=== PATIENT | female | born 1955 | race African-American/Black ===

== ENCOUNTER → 2016-12-16 | Outpatient (CLI) | payer MEDICARE, BC ==
[~2016-12-16] MED LIST: AMLO1TAB20 PO; ERGO500012 PO; OMEGA SLIM; OXYC-250 PO; [UNRECOGNIZED DRUG - OTHER]
--- NOTE | 2016-12-16 13:15 | KCIC ---
Examination: DEXA scan. HISTORY History of postmenopausal, osteoporosis prior. COMPARISON None available. Findings : The bone mineral density in the lumbar spine is 1.545 grams per cm2 with a T-score of 4.5 and a Z-score of 5.4 The bone mineral density in the distal forearm is 0.587 grams per centimeters square with a T-score of 0.5 and a Z-score of 2.0 IMPRESSION According to world [employer] diagnostic guidelines the bone mineral density in the distal forearm and in the lumbar spine is normal. Electronically signed by: Don Phillips (Dec 16, 2016 13:14:35)
--- NOTE | 2016-12-16 13:38 | KCIC ---
Examination: Ultrasound thyroid per. HISTORY History of thyroid nodule COMPARISON 03/16/2014. Findings : The right lobe of thyroid gland measures 4.0 x 1.9 x 1.6 centimeters. The left lobe of thyroid gland measures 4.4 x 2.3 x 2.0 centimeters. There is a 1.7 x 1.1 x 1.0 centimeter heterogeneous nodule identified in the inferior pole of the right lobe of thyroid gland. There is some peripheral blood flow identified in this nodule. There is a small cystic structure measuring 7 millimeters identified in the midpole of the right lobe of the thyroid gland. 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 IMPRESSION 1. Solid-appearing heterogeneous nodule identified in the inferior pole of the right lobe of thyroid gland measuring 1.7 centimeters. This appears to have somewhat increased in size prior to compared exam where it measured 1.1 centimeters. 2. 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 General recommendations for nodules 1 centimeter or greater in largest diameter: Strongly consider FNA for: - A nodule 1 cm or more in largest diameter if microcalcifications are present. - A nodule 1.5 cm or more in largest diameter if the nodule is almost entirely solid or if coarse calcifications are present. - A nodule 2 cm or more in largest diameter if the nodule is mixed solid and cystic, or is almost entirely cystic with a solid mural nodule, or has had substantial growth since prior ultrasound studies. [employer] Consensus Conference Statement, October 2005, volume 237, Issue 3. Electronically signed by: Don Phillips (Dec 16, 2016 13:36:15)
--- NOTE | 2016-12-19 08:54 | KCIC ---
Bilateral digital screening mammograms with CAD: HISTORY COMPARISON Comparison is made to previous studies dated back to 04/19/2011. FINDINGS Breast density category B. The skin and nipples show no abnormalities. No abnormal lymph nodes are seen in the axilla. The breast parenchyma shows scattered fibroglandular density. There continues to be some parenchymal asymmetry with small nodular densities in the upper-outer quadrant of the right breast which has not changed. There are no new dominant masses, suspicious calcifications or architectural distortions. Benign appearing calcifications are present IMPRESSION No evidence of malignancy. Recommend routine annual mammographic screening. This study was interpreted with the benefit of Computerized Aided Detection (CAD). Mammography is not 100% sensitive in detecting breast cancer. Therefore, a self breast exam and a clinical breast exam are very important. A negative mammogram does not negate a clinically suspicious finding and should not result in a delay in biopsying a clinically suspicious abnormality. BI-RADS category 2. Benign. This patient's information has been entered into a reminder system for the patient to be notified with the results of this examination and a target date for her next mammograms. Electronically signed by: Mikala Jolly MD (Dec 19, 2016 08:52:11)
== END | disposition home or self-care (01) ==
LOC: KCIC MAMMO 11:25
PROVIDERS: ATTEND Internal Medicine
DX: Z12.31 Encounter for screening mammogram for malignant neoplasm of breast (principal); Z13.820 Encounter for screening for osteoporosis; E04.1 Nontoxic single thyroid nodule; Z78.0 Asymptomatic menopausal state
CPT/HCPCS: 76536; 77080; 77081; G0202; 77067